=== PATIENT | female | born 1935 | race Caucasian/White ===

== ENCOUNTER 2017-12-08 11:52 | Day surgery (SDC) | payer MEDICARE, OTHER ==
[2017-12-08] VITALS (9 sets, daily range): BP systolic 116–149; BP diastolic 43–85; PULSE 57–90; TEMP 97.4–98
[~2017-12-08] VITALS: Ht 152.4 cm; Wt 55.7 kg
[2017-12-08] MEDS ORDERED: PROTONIX 40MG T40 MG PO (13:03)
[2017-12-08] MEDS ORDERED: PRESERVISION1 SGL PO (13:12)
[2017-12-08] MEDS ORDERED: B-121000 MCG PO (13:13)
[2017-12-08] MEDS ORDERED: FLAX OIL1000 MG PO (13:13)
[2017-12-08] MEDS ORDERED: CALCIUM-500 5001 CTB PO (13:14)
[2017-12-08] MEDS ORDERED: FISH OIL 1000MG1 CAP PO (13:15)
[2017-12-08] MEDS ORDERED: GLUCOSAMINE & C1 CA2 PO (13:15)
[2017-12-08] MEDS ORDERED: ADVIL200 MG PO (13:16)
[2017-12-08] MEDS ORDERED: TYLENOL 325MG325 MG PO (13:16)
[2017-12-08] MEDS ORDERED: MIRALAX PA17 GM/Dose PO (13:19)
[2017-12-08] MEDS ORDERED: TURMERIC500 MG PO (13:19)
[2017-12-09 00:12] VITALS: BP 138/76; PULSE 76; TEMP 98.4
[2017-12-09 03:37] VITALS: BP 100/47; PULSE 69; TEMP 98.1
[2017-12-09 08:13] VITALS: BP 116/51; PULSE 77; TEMP 97.6
[2017-12-09 11:16] VITALS: BP 118/48; PULSE 72; TEMP 98.4
== END 2017-12-09 14:40 ==
LOC: SDCO 11:52 → SURG 17:10 → SDCO 12-09 14:40
DX: K80.10 Calculus of gallbladder with chronic cholecystitis without obstruction (principal); Z79.899 Other long term (current) drug therapy
CPT/HCPCS: OP; J0690; J1100; J1885; J2405; J2704; J2710; J3010; J7042; J7120

== ENCOUNTER → 2018-04-09 | Outpatient (CLI) | payer MEDICARE, OTHER ==
[~2018-04-09] MED LIST: ADVIL200 MG PO; B-121000 MCG PO; CALCIUM-500 5001 CTB PO; FISH OIL 1000MG1 CAP PO; FLAX OIL1000 MG PO; GLUCOSAMINE & C1 CA2 PO; MIRALAX PA17 GM/Dose PO; PRESERVISION1 SGL PO; PROTONIX 40MG T40 MG PO; TURMERIC500 MG PO; TYLENOL 325MG325 MG PO
[2018-04-09 13:25] LABS: HIV 1/2 Antibodies Non-Reactive; HIV-1p24 Antigen Non-Reactive
== END ==
LOC: COL.LAB 12:19
PROVIDERS: Orthopaedic Surgery
DX: Z01.812 Encounter for preprocedural laboratory examination (principal); M17.11 Unilateral primary osteoarthritis, right knee